=== PATIENT | female | born 1970 | race Caucasian/White ===

== ENCOUNTER 2020-12-28 23:20 | Emergency (ER) | payer OTHER ==
--- NOTE | 2020-12-28 23:45 | EDM.PDOC ---
ED HPI GENERAL MEDICAL PROBLEM - General Chief Complaint: General Stated Complaint: profile diet blood sugar low Time Seen by Provider: 12/28/20 23:41 Source of Information: Reports: Patient - History of Present Illness INITIAL COMMENTS - FREE TEXT/NARRATIVE: 50-year-old lady came to the emergency department due to a 1 week history of general fatigue, weakness, increasing headache, and palpitations. She states that she started the profile diet approximately 2 weeks ago and approximately 1 week ago started taking a statin medication and then yesterday started taking Chantix. She plans to quit smoking tomorrow. She states that she has had increasing difficulty with fatigue, shakes, palpitations. She denies chest pain, shortness of breath. She has had increased thirst and increased urination but denies dysuria or hematuria. Onset: Gradual - Related Data Allergies Allergy/AdvReac Type Severity Reaction Status Date / Time adhesive Allergy Intermediate unknown Verified 12/28/20 23:36 Home Meds: Home Meds LORazepam [Ativan] 0.5 mg PO TID PRN 12/28/20 [History] Varenicline Tartrate [Chantix] 1 dose PO ASDIRECTED 12/28/20 [History] atorvaSTATin [Lipitor] 20 mg PO BEDTIME 12/28/20 [History] ED ROS GENERAL - Review of Systems Review Of Systems: See Below Constitutional: Reports: Malaise, Weakness, Fatigue HEENT: Reports: No Symptoms Respiratory: Reports: No Symptoms Cardiovascular: Reports: Palpitations Endocrine: Reports: No Symptoms GI/Abdominal: Reports: No Symptoms : Reports: Frequency, Other (Polydipsia) Musculoskeletal: Reports: No Symptoms Skin: Reports: No Symptoms Neurological: Reports: Headache, Tremors, Weakness Psychiatric: Reports: Anxiety Hematologic/Lymphatic: Reports: No Symptoms Immunologic: Reports: No Symptoms ED EXAM, GENERAL - Physical Exam Exam: See Below Exam Limited By: No Limitations General Appearance: Alert, WD/WN, Anxious Head: Atraumatic, Normocephalic Respiratory/Chest: No Respiratory Distress, Lungs Clear, Normal Breath Sounds Cardiovascular: Normal Peripheral Pulses, Regular Rate, Rhythm, No Murmur Peripheral Pulses: 2+: Radial (L), Radial (R), Dorsalis Pedis (L), Dorsalis Pedis (R) GI/Abdominal: Normal Bowel Sounds, Non-Tender Extremities: Pedal Edema, Other (Trace bilateral lower extremity edema) Neurological: Alert, Oriented Psychiatric: Anxious Skin Exam: Warm, Dry, Intact Course - Vital Signs Text/Narrative:: Lab work reviewed. Patient has very mild elevation in AST, ALT, alkaline phosphatase. Note that patient recently started a statin medication and has had symptoms that include fatigue, weakness. It is likely that her presentation is multifactorial. She probably has some muscle weakness and fatigue secondary to significant change in diet and starting statin medication. This probably added to anxiety over overall changes and smoking cessation scheduled for this a.m. I advised the patient to quit taking the statin medication at this time and proceed with smoking cessation. I advised her to follow-up with her primary care physician next week to discuss smoking cessation efficacy and when and if to restart a statin medication. Last Recorded V/S: Last Vital Signs Temp 36.9 C 12/28/20 23:20 Pulse 84 12/28/20 23:20 Resp 16 12/28/20 23:20 BP 138/77 12/28/20 23:20 Pulse Ox 98 12/28/20 23:20 - Orders/Labs/Meds Labs: Laboratory Tests 12/28/20 12/28/20 Range/Units 23:50 23:50 WBC 8.3 (3.0-10.3) x10-3/uL RBC 4.81 (3.60-5.20) x10(6)uL Hgb 15.0 (11.4-15.5) g/dL Hct 44.7 (34.2-48.2) % MCV 92.8 (76.7-100.5) fL MCH 31.2 (23.9-33.9) pg MCHC 33.6 (31.9-34.8) g/dL RDW 13.0 (12.3-16.5) % Plt Count 232 (151-488) x10(3)uL MPV 10.8 (7.1-12.4) fL Neut % (Auto) 67.6 (30.8-76.2) % Lymph % (Auto) 23.3 (18.4-52.1) % Hughes % (Auto) 6.8 (4.4-15.7) % Eos % (Auto) 1.3 (0.6-8.1) % Baso % (Auto) 1.0 (0.2-1.5) % Neut # (Auto) 5.6 (1.5-6.3) x10-3/uL Lymph # (Auto) 1.9 (1.0-4.4) x10-3/uL Hughes # (Auto) 0.6 (0.3-1.0) x10-3/uL Eos # (Auto) 0.1 (0.0-0.8) x10-3/uL Baso # (Auto) 0.1 (0.0-0.1) x10-3/uL Sodium 141 (135-145) mmol/L Potassium 3.5 (3.5-5.3) mmol/L Chloride 102 (100-110) mmol/L Carbon Dioxide 26 (21-32) mmol/L BUN 18 (7-18) mg/dL Creatinine 1.0 (0.55-1.02) mg/dL Est Cr Clr Drug Dosing 56.83 mL/min Estimated GFR (MDRD) 58 L (>60) BUN/Creatinine Ratio 18.0 (9-20) Glucose 127 H (80-116) mg/dL Calcium 9.3 (8.6-10.2) mg/dL Total Bilirubin 0.3 (0.1-1.3) mg/dL AST 30 H (5-25) IU/L ALT 48 H (12-36) U/L Alkaline Phosphatase 113 H (56-112) IU/L Total Protein 7.4 (6.0-8.0) g/dL Albumin 4.0 (3.5-5.2) g/dL Globulin 3.4 g/dL Albumin/Globulin Ratio 1.2 Departure - Departure Time of Disposition: 00:32 Disposition: Home, Self-Care 01 Clinical Impression: Statin intolerance - Discharge Information *PRESCRIPTION DRUG MONITORING PROGRAM REVIEWED*: Not Applicable *COPY OF PRESCRIPTION DRUG MONITORING REPORT IN PATIENT JOHNNY: Not Applicable Instructions: Statin Intolerance, Generalized Anxiety Disorder, Adult Referrals: Richmond Moctezuma MD [Primary Care Provider] - Forms: ED Department Discharge Sepsis Event Note (ED) - Focused Exam Vital Signs: Vital Signs Temp Pulse Resp BP Pulse Ox 12/28/20 23:20 36.9 C 84 16 138/77 98
[2020-12-28 23:56] VITALS: BP 138/77; PULSE 84
== END 2020-12-29 00:45 | disposition home or self-care (01) ==
LOC: FB.ED 23:20
DX: R53.83 Other fatigue (principal); T46.6X5A Adverse effect of antihyperlipidemic and antiarteriosclerotic drugs, initial encounter; R60.0 Localized edema; Z91.048 Other nonmedicinal substance allergy status; Z79.899 Other long term (current) drug therapy
CPT/HCPCS: 36415; 80053; 85025; 99284